=== PATIENT | female | born 1980 | race African-American/Black ===

== ENCOUNTER 2016-09-07 08:25 | Emergency (ER) | payer MEDICAID ==
[2016-09-07] MEDS ORDERED: HYDROCODONE/ACETAMINOPHEN 5-325 MG TABLET PO ONE (09:16)
--- NOTE | 2016-09-07 09:50 | ER Document Report ---
ED General - General Chief Complaint: Leg Injury Stated Complaint: FELL/LEG PAIN TRAVEL OUTSIDE OF THE [place] IN LAST 30 DAYS: No - Related Data Allergies/Adverse Reactions: No Known Allergies Allergy (Verified 09/07/16 08:29) Past Medical History - Social History Smoking Status: Unknown if Ever Smoked Chew tobacco use (# tins/day): No Frequency of alcohol use: None Drug Abuse: None Family History: Reviewed & Not Pertinent Patient has suicidal ideation: No Patient has homicidal ideation: No - Past Medical History Cardiac Medical History: Reports: Hx Hypercholesterolemia, Hx Hypertension Renal/ Medical History: Denies: Hx Peritoneal Dialysis Musculoskeltal Medical History: Reports Hx Musculoskeletal Trauma - fractured left knee Traumatic Medical History: Reports: Hx Fractures - left knee Past Surgical History: Reports: Hx Section - X 3, Hx Orthopedic Surgery - 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 - Immunizations Immunizations up to date: Yes Hx Diphtheria, Pertussis, Tetanus Vaccination: Yes Physical Exam - Vital signs Vitals: Temp Pulse Resp BP Pulse Ox 97.9 F 99 18 139/103 H 99 09/07/16 08:30 09/07/16 08:30 09/07/16 08:30 09/07/16 08:30 09/07/16 08:30 Course - Vital Signs Vital signs: Temp Pulse Resp BP Pulse Ox 97.9 F 99 18 139/103 H 99 09/07/16 08:30 09/07/16 08:30 09/07/16 08:30 09/07/16 08:30 09/07/16 08:30 Discharge - Discharge Clinical Impression: SOB (shortness of breath) Knee pain Qualifiers: Laterality: left Chronicity: acute Qualified Code(s): M25.562 - Pain in left knee Condition: Stable Disposition: HOME, SELF-CARE Instructions: Sprained Knee ([facility]) Referrals: ALDO CULVER FNP-C [Primary Care Provider] - Follow up in 3-5 days
[2016-09-07 09:57] VITALS: BP 139/86
== END 2016-09-07 09:54 | disposition home or self-care (01) ==
LOC: ER 08:25
DX: S89.92XA Unspecified injury of left lower leg, initial encounter (principal); R06.02 Shortness of breath; M25.562 Pain in left knee; X58.XXXA Exposure to other specified factors, initial encounter
CPT/HCPCS: 99283

== ENCOUNTER 2016-09-15 17:22 | Emergency (ER) | payer MEDICAID ==
--- NOTE | 2016-09-15 17:27 | ER Document Report ---
ED Medical Screen (RME) - General Stated Complaint: ABSCESS ON GUMS Mode of Arrival: Ambulatory Information source: Patient Notes: pt presents with dental abscess to right upper gum since . cannot get dental appointment for 2 weeks. Denies f/v/d/. I have greeted and performed a rapid initial assessment of this patient. A comprehensive ED assessment and evaluation of the patient, analysis of test results and completion of the medical decision making process will be conducted by additional ED providers. TRAVEL OUTSIDE OF THE [place] 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
[2016-09-15 17:28] VITALS: BP 144/96
--- NOTE | 2016-09-15 19:15 | ER Document Report ---
ED Oral Problem - General Chief Complaint: Toothache Stated Complaint: ABSCESS ON GUMS Mode of Arrival: Ambulatory Information source: Patient Notes: 35 y/o F presents to ED c/o dental pain. Pt reports pain to right upper tooth over the last 2 days. Reports pain radiates to right side of face. Denies fever , difficulty breathing or swallowing. States thinks noted some drainage from area yesterday. States has appointment with dentist in 2 weeks but could not wait until then. TRAVEL OUTSIDE OF THE [place] IN LAST 30 DAYS: No - HPI Patient complains to provider of: Toothache Onset: Yesterday Onset: Gradual Quality of pain: Achy Severity: Moderate Pain Level: 3 Associated symptoms: Drainage, Toothache. denies: Difficulty speaking, Jaw pain , Tongue swelling, Unable to swallow Similar symptoms previously: Yes Recently seen / treated by doctor/dentist: No - Related Data Allergies/Adverse Reactions: No Known Allergies Allergy (Verified 09/15/16 17:28) Past Medical History - General Information source: Patient - Social History Smoking Status: Unknown if Ever Smoked Chew tobacco use (# tins/day): No Frequency of alcohol use: None Drug Abuse: None Lives with: Family Family History: Reviewed & Not Pertinent - Past Medical History Cardiac Medical History: Reports: Hx Hypercholesterolemia, Hx Hypertension Renal/ Medical History: Denies: Hx Peritoneal Dialysis Musculoskeltal Medical History: Reports Hx Musculoskeletal Trauma - fractured left knee Traumatic Medical History: Reports: Hx Fractures - left knee Past Surgical History: Reports: Hx Section - X 3, Hx Orthopedic Surgery - 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 - Immunizations Immunizations up to date: Yes Hx Diphtheria, Pertussis, Tetanus Vaccination: Yes Review of Systems - Review of Systems Constitutional: No symptoms reported EENT: See HPI Cardiovascular: No symptoms reported Respiratory: No symptoms reported Gastrointestinal: No symptoms reported Genitourinary: No symptoms reported Female Genitourinary: No symptoms reported Musculoskeletal: No symptoms reported Skin: No symptoms reported Hematologic/Lymphatic: No symptoms reported Neurological/Psychological: No symptoms reported -: Yes All other systems reviewed and negative Physical Exam - Vital signs Vitals: Temp Pulse Resp BP Pulse Ox 98.2 F 95 18 144/96 H 94 09/15/16 17:27 09/15/16 17:27 09/15/16 17:27 09/15/16 17:27 09/15/16 17:27 - General General appearance: Appears well, Alert In distress: None - HEENT Head: Normocephalic, Atraumatic Eyes: Normal Pupils: PERRL Ears: Normal External canal: Normal Tympanic membrane: Normal Sinus: Normal Nasal: Normal Mouth/Lips: Caries. No: Angioedema, Dental fracture, Laceration, Lesions Mucous membranes: Normal, Moist Teeth diagram: 1 - localized tenderness with palpation. no swelling, drainage, or fluctuance. Pharynx: Normal Neck: Normal - Respiratory Respiratory status: No respiratory distress Chest status: Nontender Breath sounds: Normal Chest palpation: Normal - Cardiovascular Rhythm: Regular Heart sounds: Normal auscultation Murmur: No Pulses: Normal: Radial Normal capillary refill: Yes Course - Re-evaluation Re-evalutation: 09/15/16 19:10 Pt hemodynamically stable, in no distress, afebrile. No trismus, abscess, or suggestion of significant deep space or soft tissue infection at this time. Pt appears stable for discharge and agrees with home care, follow-up, and ED return precautions. - Vital Signs Vital signs: Temp Pulse Resp BP Pulse Ox 98.2 F 95 18 144/96 H 94 09/15/16 17:27 09/15/16 17:27 09/15/16 17:27 09/15/16 17:27 09/15/16 17:27 Discharge - Discharge Clinical Impression: Pain, dental Condition: Stable Disposition: HOME, SELF-CARE Additional Instructions: TOOTHACHE: Your pain is due to dental decay. The tooth must be repaired in order for you to feel better. You will, therefore, be referred to a dentist. We do not have dentists on the staff at [facility]. Severe swelling or drainage around a tooth usually means a dental abscess. This also requires evaluation and treatment by the dentist, but antibiotics may be prescribed while awaiting dental treatment. You should be rechecked immediately if you develop major swelling of the face, increasing pain, a lump in the jaw or gums, headache, difficulty swallowing, or fever. PENICILLIN V K: You have been given a prescription for Penicillin VK. Your physician has determined that this is the best antibiotic for your condition. Pen VK can be taken with meals, however more of the antibiotic gets into the bloodstream if it's taken on an empty stomach. Penicillin usually has no side effects. However, allergy to penicillins is common. If you have had an allergic reaction to any drug of the penicillin family, you should never take any other penicillin. Notify your doctor at once if you develop hives, itching, swelling, faintness, or shortness of breath. Anti-Inflammatory Medication You have received a prescription for an antiinflammatory agent. This is an excellent, safe drug for pain control. In addition, it has potent antiinflammatory effects which are beneficial, especially in the treatment of injuries, arthritis, or tendonitis. It's best to take this medicine with food. Persons with ulcer disease or allergy to aspirin should notify their physician of this before taking this drug. Take the medication exactly as prescribed. Don't take additional doses unless instructed to do so by your doctor. If you develop wheezing, shortness of breath, hives, faintness, stomach pain, vomiting, or dark black stools, return for re-evaluation at once. FOLLOW-UP CARE: You have been referred for follow-up care to the dentists listed below. Call the dentists office for an appointment as you were instructed or within the next two days. If you experience worsening or a significant change in your symptoms, notify the physician immediately or return to the Emergency Department at any time for re-evaluation. [facility] [address] [place], [place] Friday mornings, by appointment [facility] [address] [place] [address] [facility] [address] [facility]. [facility] [address] [facility] [address] [facility]. [facility] [address] [facility]. [email or web address] [facility] [address] [place] [address] Friday- 8:00am to 5:00 pm Will see patients from other [facility]. Charges based on income and family size and accepts Medicare, Medicaid, and Insurances Will pull molars [facility], [facility]. [id number] Hours of Operation 8:00 am - 4:30 pm weekdays The following dental offices accept Medicaid: [facility] Dr. Ibrahim Dr. Powers Dr. Baker Dr. Stuart Matthieu Fleming Lutsavage, and [facility] Dr. Parikh ([place]) Dr. Beltre ([place]) [facility] Drs. Genao ([place]) Dr. Rivers ([place]) [facility] Dr. Rahman ([place]) Drs. Gilmore and ([place]) Medicaid Care Line Prescriptions: Naproxen [Naprosyn 375 Mg Tablet] 375 mg PO BIDP PRN #10 tablet PRN Reason: Penicillin V Potassium [Penicillin Vk 500 mg Tablet] 500 mg PO BID #10 tablet Forms: Elevated Blood Pressure Referrals: ALDO CULVER FNP-C [Primary Care Provider] - Follow up in 3-5 days
== END 2016-09-15 19:30 | disposition home or self-care (01) ==
LOC: ER 17:22
DX: K08.89 Other specified disorders of teeth and supporting structures (principal)
CPT/HCPCS: 99282

== ENCOUNTER 2018-02-24 08:46 | Emergency (ER) | payer MEDICAID ==
[2018-02-24] MEDS ORDERED: IPRATROPIUM/ALBUTEROL 0.5-2.5 MG/3 ML AMPUL NEB ONE (09:28)
--- NOTE | 2018-02-24 09:57 | ER Document Report ---
ED General - General Chief Complaint: Shortness Of Breath Stated Complaint: SHORTNESS OF BREATH, CHEST PAIN, HAND NUMBNESS Time Seen by Provider: 02/24/18 09:21 TRAVEL OUTSIDE OF THE [place] IN LAST 30 DAYS: No - HPI Patient complains to provider of: Shortness of breath numbness in hands chest pain Notes: Patient coming in for depressive symptoms also stating forgetting some words symptoms ongoing for greater than 24 hours. Patient states increased stress at work and home life. Patient otherwise has no medical issues. Patient states she sees bed first. No recent antibiotics no recent travel does not smoke does not drink does not do any drugs. Patient states most of her symptoms now have resolved except for the shortness of breath. Patient is resting comfortably upon my evaluation. - Related Data Allergies/Adverse Reactions: No Known Allergies Allergy (Verified 09/15/16 17:28) Past Medical History - Social History Smoking Status: Never Smoker Chew tobacco use (# tins/day): No Frequency of alcohol use: None Drug Abuse: None Family History: Reviewed & Not Pertinent Patient has suicidal ideation: No Patient has homicidal ideation: No - Past Medical History Cardiac Medical History: Reports: Hx Hypercholesterolemia, Hx Hypertension Renal/ Medical History: Denies: Hx Peritoneal Dialysis Musculoskeletal Medical History: Reports Hx Musculoskeletal Trauma - fractured left knee Traumatic Medical History: Reports: Hx Fractures - left knee Past Surgical History: Reports: Hx Section - X 3, Hx Orthopedic Surgery - 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 - Immunizations Immunizations up to date: Yes Hx Diphtheria, Pertussis, Tetanus Vaccination: Yes Review of Systems - Review of Systems Constitutional: No symptoms reported EENT: No symptoms reported Cardiovascular: No symptoms reported Respiratory: Short of breath Gastrointestinal: No symptoms reported Genitourinary: No symptoms reported Female Genitourinary: No symptoms reported Musculoskeletal: No symptoms reported Skin: No symptoms reported Hematologic/Lymphatic: No symptoms reported Neurological/Psychological: No symptoms reported -: Yes All other systems reviewed and negative Physical Exam - Vital signs Vitals: Temp Pulse Resp BP Pulse Ox 98.9 F 105 H 16 150/115 H 99 02/24/18 08:54 02/24/18 08:54 02/24/18 08:54 02/24/18 08:54 02/24/18 08:54 Interpretation: Normal - General General appearance: Appears well, Alert - HEENT Head: Normocephalic, Atraumatic Eyes: Normal Pupils: PERRL - Respiratory Respiratory status: No respiratory distress Chest status: Nontender Breath sounds: Normal Chest palpation: Normal - Cardiovascular Rhythm: Regular Heart sounds: Normal auscultation Murmur: No - Abdominal Inspection: Normal, Morbidly Obese Distension: No distension Bowel sounds: Normal Tenderness: Nontender Organomegaly: No organomegaly - Back Back: Normal, Nontender - Extremities General upper extremity: Normal inspection, Nontender, Normal color, Normal ROM , Normal temperature, Other - Increase numbness and tingling with Phalen's test holding transposition for approximately 30 seconds. Symptoms are not reproduced with tapping of the median nerve General lower extremity: Normal inspection, Nontender, Normal color, Normal ROM , Normal temperature, Normal weight bearing. No: Monika's sign - Neurological Neuro grossly intact: Yes Cognition: Normal Orientation: AAOx4 Pamela Coma Scale Eye Opening: Spontaneous Pamela Coma Scale Verbal: Oriented Pamela Coma Scale Motor: Obeys Commands Pamela Coma Scale Total: 15 Speech: Normal Motor strength normal: LUE, RUE, LLE, RLE Sensory: Normal - Psychological Associated symptoms: Normal affect, Normal mood - Skin Skin Temperature: Warm Skin Moisture: Dry Skin Color: Normal Course - Re-evaluation Re-evalutation: 02/24/18 16:36 Patient with no improvement of her symptoms after breathing treatment. Chest x- ray did not show any signs of critical pathology. Patient's laboratory studies also did not show any critical pathology. More likely with the patient stating increased stress and increased work while she is symptoms are manifestation of her underlying fatigue. Patient agrees with this assessment and plan. Patient is to rest follow-up primary care physician for possible underlying carpal tunnel syndrome as well. Discharged home - Vital Signs Vital signs: Temp Pulse Resp BP Pulse Ox 97.6 F 93 18 153/94 H 100 02/24/18 11:09 02/24/18 11:09 02/24/18 11:09 02/24/18 11:09 02/24/18 11:09 - Laboratory Result Diagrams: 02/24/18 09:33 02/24/18 09:33 Laboratory results interpreted by me: 02/24/18 02/24/18 09:33 09:33 MCH 26.2 L RDW 16.0 H BUN 5 L Discharge - Discharge Clinical Impression: Numbness Dyspnea Qualifiers: Dyspnea type: unspecified Qualified Code(s): R06.00 - Dyspnea, unspecified Condition: Good Disposition: HOME, SELF-CARE Instructions: Carpal Tunnel Syndrome ([facility]), Dyspnea, Nonspecific ([facility]), Fatigue ([facility]) Additional Instructions: Your chest x-ray and laboratory values today did not reveal any significant pathology for your symptoms. I do believe the terms of tingling in her hands is possibly from development of carpal tunnel syndrome. If you are doing a lot of typing would recommend to get an ergonomic keyboard. Your chest x-ray shows no signs of infection and pneumonia also shows no signs of CHF or fluid within the bones no signs of heart failure. Laboratory studies show no signs of cardiac ischemia or heart damage. They believe most her symptoms are more likely stress related or fatigue related. Would recommend following up with her primary care physician for further evaluation. Return to the ER symptoms worsen. Your blood pressure was slightly elevated today. At this time there is no emergent need to treat this however this is something that her primary care physician will need to continue to monitor to make sure that she did not require medications. Forms: Elevated Blood Pressure, Return to Work Referrals: ALDO CULVER, NOZZLE WORKER-C [COMMUNITY BASED STAFF] - Follow up as needed
[2018-02-24 09:59] LABS: ABSOLUTE BASOPHILS # (AUTO) 0.1 10^3/uL (0.0-0.2); ABSOLUTE LYMPHOCYTES (AUTO) 2.1 10^3/uL (0.5-4.7); ABSOLUTE MONOCYTES (AUTO) 0.5 10^3/uL (0.1-1.4); ABSOLUTE NEUT (AUTO) 5.2 10^3/uL (1.7-8.2); BASOPHILS % (AUTO) 0.9 % (0-2); EOSINOPHILS % (AUTO) 0.5 % (0-6); HEMATOCRIT 38.1 % (36.0-47.0); HEMOGLOBIN 12.3 g/dL (12.0-15.5); MEAN CORPUSCULAR HEMOGLOBIN 26.2 pg (27.0-33.4); MEAN CORPUSCULAR HGB CONC 32.3 g/dL (32.0-36.0); MEAN CORPUSCULAR VOLUME 81 fl (80-97); MONOCYTES % (AUTO) 6.9 % (3-13); PLATELET COUNT 356 10^3/uL (150-450); RED BLOOD COUNT 4.69 10^6/uL (3.72-5.28); SEGMENTED NEUTROPHILS % (AUTO) 65.7 % (42-78); TOTAL CELLS COUNTED % (AUTO) 100 %; WHITE BLOOD COUNT 7.9 10^3/uL (4.0-10.5)
--- NOTE | 2018-02-24 10:04 | RADIOLOGY REPORT (SQ) ---
EXAM DESCRIPTION: CHEST 2 VIEWS COMPLETED DATE/TIME: 02/24/2018 9:48 am REASON FOR STUDY: sob COMPARISON: None. EXAM PARAMETERS: NUMBER OF VIEWS: two views TECHNIQUE: Digital Frontal and Lateral radiographic views of the chest acquired. RADIATION DOSE: NA LIMITATIONS: none FINDINGS: LUNGS AND PLEURA: No opacities, masses or pneumothorax. No pleural effusion. MEDIASTINUM AND HILAR STRUCTURES: No masses or contour abnormalities. HEART AND VASCULAR STRUCTURES: Heart normal size. No evidence for failure. BONES: No acute findings. HARDWARE: None in the chest. OTHER: No other significant finding. IMPRESSION: NO ACUTE RADIOGRAPHIC FINDING IN THE CHEST. TECHNICAL DOCUMENTATION: JOB ID: [id number] [employer]- All Rights Reserved Reading location - IP/workstation name: [email or web address]
[2018-02-24 10:12] LABS: ALANINE AMINOTRANSFERASE 18 U/L (9-52); ALKALINE PHOSPHATASE 51 U/L (38-126); ANION GAP 11 (5-19); ASPARTATE AMINO TRANSFERASE 17 U/L (14-36); BILIRUBIN,DIRECT 0.2 mg/dL (0.0-0.4); BILIRUBIN,TOTAL 0.3 mg/dL (0.2-1.3); BLOOD UREA NITROGEN 5 mg/dL (7-20); CALCIUM 9.6 mg/dL (8.4-10.2); CARBON DIOXIDE 25 mmol/L (22-30); CHLORIDE 106 mmol/L (98-107); CREATINE KINASE 66 U/L (30-135); GLUCOSE 106 mg/dL (75-110); LIPASE 47.2 U/L (23-300); POTASSIUM 4.6 mmol/L (3.6-5.0); SODIUM 142.2 mmol/L (137-145); TOTAL PROTEIN 8.1 g/dL (6.3-8.2)
[2018-02-24 11:11] VITALS: BP 153/94
--- NOTE | 2018-02-24 22:30 | EKG REPORT ---
SEVERITY:- BORDERLINE ECG - SINUS TACHYCARDIA LVH BY VOLTAGE : Confirmed by: Delfina Alarcon 24-Feb-2018 22:30:13
== END 2018-02-24 11:11 | disposition home or self-care (01) ==
LOC: ER 08:46
DX: R06.00 Dyspnea, unspecified (principal); R07.9 Chest pain, unspecified; R20.0 Anesthesia of skin; I10 Essential (primary) hypertension
CPT/HCPCS: 93005; 94640; 99285; 36415; 82550; 84702; 83690; 85025; 80053; 84484; 71046; 93010; J7620

== ENCOUNTER 2018-10-08 08:05 | Emergency (ER) | payer SELFPAY ==
[2018-10-08] MEDS ORDERED: KETOROLAC TROMETHAMINE 60 MG/2 ML SDV IM ONE (10:00)
[2018-10-08] MEDS ORDERED: MORPHINE SULFATE 10 MG/ML INJ IM ONE (10:00)
--- NOTE | 2018-10-08 10:02 | ER Document Report ---
ED General - General Chief Complaint: Shoulder Pain Stated Complaint: RIGHT SHOULDER PAIN Time Seen by Provider: 10/08/18 09:28 Mode of Arrival: Ambulatory Information source: Patient Notes: 37-year-old female with hypertension, hyperlipidemia presents with right shoulder pain that started 1 day prior to arrival. Patient states that it began after she tried to move her washing machine out from the wall so she could clean behind it. She states she had a sudden stabbing pain that progressively worsened. Patient did try icing, Aleve without relief. Patient also complaining of pain with minimal range of motion. She denies any fall, previous similar symptoms, chest pain, shortness of breath, fever, chills, hand weakness. TRAVEL OUTSIDE OF THE [place] IN LAST 30 DAYS: No - HPI Onset: Yesterday Onset/Duration: Sudden Quality of pain: Burning, Stabbing, Throbbing Severity: Moderate Associated symptoms: denies: Chest pain, Fever, Nausea, Vomiting, Shortness of breath Exacerbated by: Movement Relieved by: Denies Similar symptoms previously: No Recently seen / treated by doctor: No - Related Data Allergies/Adverse Reactions: No Known Allergies Allergy (Verified 10/08/18 08:05) Past Medical History - General Information source: Patient, [facility] Records - Social History Smoking Status: Never Smoker Frequency of alcohol use: None Drug Abuse: None Lives with: Family Family History: Reviewed & Not Pertinent Patient has suicidal ideation: No Patient has homicidal ideation: No - Past Medical History Cardiac Medical History: Reports: Hx Hypercholesterolemia, Hx Hypertension Renal/ Medical History: Denies: Hx Peritoneal Dialysis Musculoskeletal Medical History: Reports Hx Musculoskeletal Trauma - fractured left knee Traumatic Medical History: Reports: Hx Fractures - left knee Past Surgical History: Reports: Hx Section - X 3, Hx Orthopedic Surgery - 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 - Immunizations Immunizations up to date: Yes Hx Diphtheria, Pertussis, Tetanus Vaccination: Yes Review of Systems - Review of Systems Notes: REVIEW OF SYSTEMS: CONSTITUTIONAL : Denies fever, chills, or sweats. Denies recent illness. Denies weight loss, recent hospitalizations. EENT: Denies visual changes, eye pain. Denies sore throat, oral lesions, difficulty swallowing. CARDIOVASCULAR: Denies chest pain. Denies palpitations. Denies lower extremity edema. RESPIRATORY: Denies cough. Denies shortness of breath, wheezing. GASTROINTESTINAL: Denies abdominal pain or distention. Denies nausea, vomiting, or diarrhea. Denies blood in vomitus, stools, or per rectum. Denies black, tarry stools. Denies constipation. GENITOURINARY: Denies difficulty urinating, painful urination, frequency, blood in urine, or vaginal discharge. MUSCULOSKELETAL: Denies back or neck pain or stiffness. SKIN: Denies rash, lesions or sores. HEMATOLOGIC : Denies easy bruising or bleeding. LYMPHATIC: Denies swollen glands. NEUROLOGICAL: Denies confusion or altered mental status. Denies loss of consciousness. Denies dizziness or lightheadedness. Denies headache. Denies weakness or paralysis. Denies problems difficulty with ambulation, slurred speech. Denies sensory loss, numbness, or tingling. Denies seizures. PSYCHIATRIC: Denies anxiety or stress. Denies depression, suicidal ideation, or homicidal ideation. Denies visual or auditory hallucinations. Physical Exam - Vital signs Vitals: Temp Pulse Resp BP Pulse Ox 97.7 F 106 H 22 H 147/97 H 99 10/08/18 08:10 10/08/18 08:10 10/08/18 08:10 10/08/18 08:10 10/08/18 08:10 - Notes Notes: PHYSICAL EXAMINATION: GENERAL: Well-appearing, well-nourished and in no acute distress. HEAD: Atraumatic, normocephalic. EYES: Pupils equal round and reactive to light, extraocular movements intact, conjunctiva are normal. ENT: Nares patent, oropharynx clear without exudates. Moist mucous membranes. NECK: Normal range of motion, supple without lymphadenopathy LUNGS: Breath sounds clear to auscultation bilaterally and equal. No wheezes rales or rhonchi. HEART: Regular rate and rhythm without murmurs ABDOMEN: Soft, nontender, nondistended abdomen. No guarding, no rebound. No masses appreciated. Female : deferred Musculoskeletal: Normal range of motion, no pitting or edema. No cyanosis. Right shoulder- pain with abduction, extension. Limited range of motion secondary to pain. No obvious deformity. NEUROLOGICAL: Mental status; alert and oriented x3. Cranial nerves II through XII intact. Sensation intact to sharp/dull differentiation in all extremities. Motor; normal tone. No abnormal movements appreciated. No pronator drift. Strength tested and 5/5 in bilateral wrist flexion/extension, elbow flexion/extension, Reflexes; brachial radialis, biceps, and patellar reflexes within normal limits and symmetric bilaterally. Babinski with downgoing toes bilaterally. PSYCH: Normal mood, normal affect. SKIN: Warm, Dry, normal turgor, no rashes or lesions noted. Course - Re-evaluation Re-evalutation: 10/08/18 22:44 Shoulder X-Ray 10/08/18 09:29 IMPRESSION: NEGATIVE STUDY OF THE RIGHT SHOULDER. NO RADIOGRAPHIC EVIDENCE OF ACUTE INJURY. Temp Pulse Resp BP Pulse Ox 97.8 F 89 18 122/90 H 96 10/08/18 10:44 10/08/18 10:44 10/08/18 10:44 10/08/18 10:44 10/08/18 10:44 37-year-old female with right shoulder pain that started 1 day prior to arrival after trying to move her washing machine. Has had pain and limited range of motion since that time. Has taken Aleve without relief. Denies prior similar symptoms. Vital signs reviewed and within normal limits. Patient does not appear toxic or dehydrated. She is in no acute distress. Patient's right upper extremity is neurologically intact. She does have limited range of motion with flexion and abduction. No weakness present. X-ray of the right shoulder was obtained and without any evidence of acute injury. Patient was administered IM morphine, Toradol and does report some improvement of pain. Patient was advised to continue to ice, take Naprosyn as needed for pain and follow-up with her primary care physician. Patient was discharged home in stable condition with recommendations to return to the emergency department with any concerns. Dictation on this chart was performed using voice recognition software and may result in unintended grammatical, spelling, syntax or errors. - Vital Signs Vital signs: Temp Pulse Resp BP Pulse Ox 97.8 F 89 18 122/90 H 96 10/08/18 10:44 10/08/18 10:44 10/08/18 10:44 10/08/18 10:44 10/08/18 10:44 - Diagnostic Test Radiology reviewed: Image reviewed, Reports reviewed Discharge - Discharge Clinical Impression: Elevated blood pressure reading Right shoulder strain Qualifiers: Encounter type: initial encounter Qualified Code(s): S46.911A - Strain of unspecified muscle, fascia and tendon at shoulder and upper arm level, right arm, initial encounter Rotator cuff injury Qualifiers: Encounter type: initial encounter Laterality: right Qualified Code(s): S46.001A - Unspecified injury of muscle(s) and tendon(s) of the rotator cuff of right shoulder, initial encounter Condition: Good Disposition: HOME, SELF-CARE Instructions: Muscle Strain ([facility]), Rotator Cuff Injury ([facility]), Exercise Program for the Shoulder ([facility]), Shoulder Injury ([facility]) Additional Instructions: Follow up with your -81 hours for further care or return to the ED IMMEDIATELY if symptoms worsen or you have any concerns. If you cannot afford to follow up with your primary care physician a list of low cost clinics have been provided at the end of your discharge papers as well. Most prescribed medications have multiple side effects. The safest thing to do is when filling your prescription speak to your pharmacist regarding possible interactions with your normal home medications and over the counter medications such as Ibuprofen, Tylenol, Benadryl. If you experience any symptoms that cause you discomfort or concern you should discontinue the medication immediately and return to the emergency room or call your primary care physician. Prescriptions: Naproxen [Naprosyn] 500 mg PO BID PRN #20 tablet PRN Reason: For Pain Scale 2-3 Oxycodone HCl/Acetaminophen [Percocet 5-325 mg Tablet] 1 - 2 tab PO Q6H PRN #10 tablet PRN Reason: Forms: Elevated Blood Pressure
--- NOTE | 2018-10-08 10:26 | RADIOLOGY REPORT (SQ) ---
EXAM DESCRIPTION: SHOULDER RIGHT 2 OR MORE VIEWS COMPLETED DATE/TIME: 10/08/2018 10:09 am REASON FOR STUDY: pain COMPARISON: None. NUMBER OF VIEWS: Three views. TECHNIQUE: Internal rotation, external rotation, and Y view images acquired of the right shoulder. LIMITATIONS: None. FINDINGS: MINERALIZATION: Normal. BONES: No acute fracture or dislocation. No worrisome bone lesions. JOINTS: No dislocation. VISUALIZED LUNGS AND RIBS: No pneumothorax. No rib fracture. SOFT TISSUES: No radiopaque foreign body. OTHER: No other significant finding. IMPRESSION: NEGATIVE STUDY OF THE RIGHT SHOULDER. NO RADIOGRAPHIC EVIDENCE OF ACUTE INJURY. TECHNICAL DOCUMENTATION: JOB ID: [id number] [employer]- All Rights Reserved Reading location - IP/workstation name: [email or web address]
[2018-10-08 10:47] VITALS: BP 122/90
== END 2018-10-08 10:47 | disposition home or self-care (01) ==
LOC: ER 08:05
DX: S46.911A Strain of unspecified muscle, fascia and tendon at shoulder and upper arm level, right arm, initial encounter (principal); S46.001A Unspecified injury of muscle(s) and tendon(s) of the rotator cuff of right shoulder, initial encounter; I10 Essential (primary) hypertension; X50.0XXA Overexertion from strenuous movement or load, initial encounter; E78.5 Hyperlipidemia, unspecified; Z96.652 Presence of left artificial knee joint
CPT/HCPCS: 99283; 96372; 73030; J1885; J2270